=== PATIENT | female | born 1990 | race Two or more races ===

== ENCOUNTER 2021-07-30 02:45 | Inpatient (IN) | payer SELFPAY ==
[2021-07-30] MEDS ORDERED: OXYTOCIN 30 UNIT/500 ML PREMIX 500 ML IV ONE (02:52)
--- NOTE | 2021-07-30 03:22 | PDOC1 ---
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 When she arrived to the floor she was delivering in the wheelchair. She began her care at [facility] in February and had a total of 4 visits. Her last visit was 06/23/21. PMH: Denies PSH: Bone marrow donation 2004 Meds: PNV, Fe daily All: NKDA OBHx: TSVD x 5 SH: no tob, no EtOH FH: Noncontributory Physical Exam: PE: GENERAL: No apparent distress. Alert and oriented. HEENT: Head normocephalic, atraumatic. NECK: Supple LUNGS: Clear to auscultation. HEART: RRR, S1, S2 present, pulses intact ABDOMEN: Soft, positive bowel sounds. EXTREMITIES: No cyanosis or edema. NEUROLOGIC: Normal speech, normal tone PSYCHIATRIC: Normal affect, normal mood. SKIN: No ulceration. Assessment & Plan: A/P 30y @ 39.5 by 31wk u/s 1.) Active labor delivered in wheelchair 2.) Late presentation to care 3.) Scant care 4.) Anemia 5.) Elevated GTT 0 of 4 3hr GTT elevated 6.) Rub NI 7.) GERD 8.) Fetus delivered 9.) GBS unk precipitous delivery SCOTT SEGOVIA MD Jul 30, 2021 03:22
[2021-07-30] MEDS ORDERED: OXYTOCIN 30 UNIT/500 ML PREMIX 500 ML IV PRN ×3 (03:30)
[2021-07-30] MEDS ORDERED: BUTORPHANOL 2 MG/ML VIAL. IVP PRN ×2 (03:30)
[2021-07-30] MEDS ORDERED: IV RINGERS,LACTATED 1000ML 1,000 ML IV SCH (03:30)
[2021-07-30] MEDS ORDERED: TERBUTALINE 1 MG/ML VIAL. SQ PRN (03:30)
[2021-07-30] MEDS ORDERED: PHENYLEPH/MINERAL OIL/PETROLAT RECTAL OINTMENT TUBE. RC PRN (03:30)
[2021-07-30] MEDS ORDERED: HYDROCORTISONE 1% TOPICAL OINTMENT 30GM TUBE. TP PRN (03:30)
[2021-07-30] MEDS ORDERED: 0.9 % SODIUM CHLORIDE 10 ML DISP.SYRIN. IV PRN ×2 (03:30)
[2021-07-30] MEDS ORDERED: MMR per PROTOCOL. MC PRN (03:30)
[2021-07-30] MEDS ORDERED: SIMETHICONE 80 MG TAB.CHEW PO PRN (03:30)
[2021-07-30] MEDS ORDERED: oxyCODONE/APAP 5/325 1 TAB TABLET PO PRN (03:30)
[2021-07-30] MEDS ORDERED: LIDOCAINE 1% PF 30 ML VIAL. INJ PRN (03:30)
[2021-07-30] MEDS ORDERED: MAGNESIUM HYDROXIDE 2,400 MG/30 ML ORAL.SUSP. PO PRN (03:30)
[2021-07-30] MEDS ORDERED: diphenhydrAMINE HCL 25 MG CAPSULE PO PRN (03:30)
[2021-07-30] MEDS ORDERED: ZOLPIDEM 5 MG TABLET. PO PRN (03:30)
[2021-07-30] MEDS ORDERED: MAG HYDROX/ALUMINUM HYD/SIMETH 30 ML ORAL.SUSP PO PRN (03:30)
[2021-07-30] MEDS ORDERED: BENZOCAINE 20% TOPICAL AEROSOL SPRAY 57GM CAN. TP PRN (03:30)
[2021-07-30] MEDS ORDERED: ACETAMINOPHEN 325 MG TABLET. PO PRN ×2 (03:30)
[2021-07-30] MEDS ORDERED: TDaP (Adacel) per PROTOCOL. MC PRN (03:30)
--- NOTE | 2021-07-30 03:30 | PDOC4 ---
VAGINAL DELIVERY DATE DATE: 07/30/21 TIME: 03:30 TIME Patient delivered a viable female over intact perineum at 0237. Wt 7 lb 13 oz. Apgars 8/9. Placenta delivered spontaneously, intact with 3VC. No lacerations noted. Good hemostasis noted. 20 U of Pit given with IVF. EBL 200 cc. WEIGHT Weight [ ] SCOTT SEGOVIA MD Jul 30, 2021 03:30
[2021-07-30] MEDS: IBUPROFEN 400 MG TABLET. PO PRN ×3 (03:34→20:08)
[2021-07-30 03:47] LABS: BASO % 0 % (0-3); EOS # 0.1 x10^3/uL (0.0-0.7); EOS % 1 % (0-3); HEMATOCRIT 33.1 % (36.0-47.0); HEMOGLOBIN 10.6 g/dL (12.0-15.5); LYMPH # 3.5 x10^3/uL (1.0-4.8); LYMPH % 28 % (24-48); MEAN CORPUSCULAR HEMOGLOBIN 26 pg (25-35); MEAN CORPUSCULAR HGB CONC 32 g/dL (31-37); MEAN CORPUSCULAR VOLUME 82 fL (79-100); MONO # 0.8 x10^3/uL (0.0-1.1); MONO % 6 % (0-9); NEUT % 65 % (31-73); PLATELET COUNT 314 x10^3/uL (140-400); RED BLOOD COUNT 4.05 x10^6/uL (3.50-5.40); RED CELL DISTRIBUTION WIDTH 16.7 % (11.5-14.5); WHITE BLOOD COUNT 12.3 x10^3/uL (4.0-11.0)
[2021-07-30 05:30] VITALS: BP 118/73
[2021-07-30] MEDS ORDERED: OXYTOCIN 10 UNIT/ML VIAL. ONE (06:30)
[2021-07-30 08:12] VITALS: BP 110/71
[2021-07-30] MEDS: DOCUSATE SODIUM 100 MG CAPSULE. PO PRN (08:42)
[2021-07-30] MEDS: PRENATAL MULTIVITAMIN TABLET. PO SCH (08:42)
[2021-07-30 12:04] VITALS: BP 100/53
[2021-07-30 17:50] VITALS: BP 108/63
[2021-07-30 23:07] VITALS: BP 109/66
[2021-07-31 05:59] VITALS: BP 119/74
[2021-07-31] MEDS: IBUPROFEN 400 MG TABLET. PO PRN ×2 (06:01→13:56)
[2021-07-31 07:54] VITALS: BP 116/70
[2021-07-31 08:45] LABS: HEMATOCRIT 29.7 % (36.0-47.0); HEMOGLOBIN 9.7 g/dL (12.0-15.5); RED BLOOD COUNT 3.58 x10^6/uL (3.50-5.40); RED CELL DISTRIBUTION WIDTH 17.3 % (11.5-14.5); WHITE BLOOD COUNT 8.6 x10^3/uL (4.0-11.0)
[2021-07-31] MEDS: PRENATAL MULTIVITAMIN TABLET. PO SCH (09:30)
[2021-07-31] MEDS: DOCUSATE SODIUM 100 MG CAPSULE. PO PRN (09:30)
[2021-07-31] MEDS: FERROUS SULFATE 325 MG TABLET. PO SCH (09:30)
--- NOTE | 2021-07-31 13:16 | PDOC ---
EXTENSION WORK DIRECTOR PROGRESS NOTE Date of Service: DATE: 07/31/21 TIME: 13:15 Subjective: Pt with good pain control. Jerica PO. Voiding. Minimal lochia Objective: Vital Signs: Vital Signs Date Time Temp Pulse Resp B/P (MAP) Pulse Ox O2 Delivery O2 Flow Rate FiO2 07/30/21 08:12 98.5 55 18 110/71 (84) 98 Room Air 98.5 Vital Signs Date Time Temp Pulse Resp B/P (MAP) Pulse Ox O2 Delivery O2 Flow Rate FiO2 07/31/21 07:54 97.9 74 16 116/70 (85) 98 Room Air 97.9 Labs: Laboratory Tests Test 07/31/21 08:10 White Blood Count 8.6 x10^3/uL (4.0-11.0) Red Blood Count 3.58 x10^6/uL (3.50-5.40) Hemoglobin 9.7 g/dL (12.0-15.5) L Hematocrit 29.7 % (36.0-47.0) L Mean Corpuscular Volume 83 fL (79-100) Mean Corpuscular Hemoglobin 27 pg (25-35) Mean Corpuscular Hemoglobin Concent 33 g/dL (31-37) Red Cell Distribution Width 17.3 % (11.5-14.5) H Platelet Count 245 x10^3/uL (140-400) Laboratory Tests 07/31/21 08:10 Laboratory Tests 07/31/21 08:10 Physical Exam: GENERAL: No apparent distress. Alert and oriented. HEENT: Head normocephalic, atraumatic. NECK: Supple LUNGS: Clear to auscultation. HEART: RRR, S1, S2 present, pulses intact ABDOMEN: Soft, positive bowel sounds. EXTREMITIES: No cyanosis or edema. NEUROLOGIC: Normal speech, normal tone PSYCHIATRIC: Normal affect, normal mood. SKIN: No ulceration. FFNT below umb No C/C/E Assessment & Plan: A/P 30y PPD #1 s/p 1.) PP doing well 2.) Late presentation and scant care 3.) Anemia Hgb 10.6 -> 9.7, on Fe 4.) Rub NI 5.) GERD 6.) Cont PP care SCOTT SEGOVIA MD Jul 31, 2021 13:16
[2021-07-31 14:00] VITALS: BP 122/73
[2021-07-31 20:45] VITALS: BP 111/69
[2021-08-01] MEDS: DOCUSATE SODIUM 100 MG CAPSULE. PO PRN (00:41)
[2021-08-01] MEDS: FERROUS SULFATE 325 MG TABLET. PO SCH ×2 (00:41→09:12)
[2021-08-01] MEDS: IBUPROFEN 400 MG TABLET. PO PRN ×2 (00:41→09:12)
[2021-08-01 04:34] VITALS: BP 110/70
[2021-08-01] MEDS: PRENATAL MULTIVITAMIN TABLET. PO SCH (09:12)
--- NOTE | 2021-08-01 09:28 | PDOC ---
SYSTEMS CHECKOUT MECHANIC PROGRESS NOTE Date of Service: DATE: 08/01/21 TIME: 09:28 Subjective: Pt with good pain control. Jerica PO. Voiding. Minimal lochia. Objective: Vital Signs: Vital Signs Date Time Temp Pulse Resp B/P (MAP) Pulse Ox O2 Delivery O2 Flow Rate FiO2 07/31/21 07:54 97.9 74 16 116/70 (85) 98 Room Air 97.9 Vital Signs Date Time Temp Pulse Resp B/P (MAP) Pulse Ox O2 Delivery O2 Flow Rate FiO2 08/01/21 04:34 98.1 76 18 110/70 (83) 98 Room Air 98.1 Physical Exam: GENERAL: No apparent distress. Alert and oriented. HEENT: Head normocephalic, atraumatic. NECK: Supple LUNGS: Clear to auscultation. HEART: RRR, S1, S2 present, pulses intact ABDOMEN: Soft, positive bowel sounds. EXTREMITIES: No cyanosis or edema. NEUROLOGIC: Normal speech, normal tone PSYCHIATRIC: Normal affect, normal mood. SKIN: No ulceration. FFNT below umb No C/C/E Assessment & Plan: A/P 30y PPD #2 s/p 1.) PP doing well 2.) Late presentation and scant care 3.) Anemia Hgb 10.6 -> 9.7, on Fe 4.) Rub NI given MMR 5.) GERD 6.) D/c home SCOTT SEGOVIA MD Aug 01, 2021 09:28
[2021-08-01] MEDS ORDERED: MEASLES, MUMPS & RUBELLA VACC 0.5 ML VIAL. VAX SQ ONE (09:30)
[2021-08-01] MEDS ORDERED: DOCU-109 PO (09:31)
[2021-08-01] MEDS ORDERED: FERR325T14 PO (09:31)
[2021-08-01] MEDS ORDERED: IBUP-1060 PO (09:31)
[2021-08-01 14:00] VITALS: BP 128/79
--- NOTE | 2021-08-01 14:10 | NUR ---
This G 6 P6 discharged home in stable post condition with her daughter.. Post discharge instructions were thoroughly reviewed and pt gave verbal and written understanding. 6weeks follow appt was made for pt prior to discharge per Dr. Mckeon.
== END 2021-08-01 19:17 | disposition home or self-care (01) | DRG 807 ==
LOC: 3 SO LND 02:45
PROVIDERS: ADMIT Obstetrics & Gynecology; ATTEND Obstetrics & Gynecology
PROC: 10E0XZZ Delivery of Products of Conception, External Approach (ICD-10-PCS; principal; 2021-07-30)
DX: O62.3 Precipitate labor (principal); Z37.0 Single live birth; O99.02 Anemia complicating childbirth; O99.62 Diseases of the digestive system complicating childbirth; K92.89 Other specified diseases of the digestive system; D64.9 Anemia, unspecified; Z3A.39 39 weeks gestation of pregnancy; Z20.822 Contact with and (suspected) exposure to COVID-19
CPT/HCPCS: 36415; 85025; 85027; 86592; 86850; 86900; 86901; 87426; 90471; 90707; J2590; U0003; U0005; G0378